=== PATIENT | female | born 1960 | race Caucasian/White ===

== ENCOUNTER 2021-07-25 08:45 | Outpatient (CLI) | payer OTHER, SELFPAY ==
--- NOTE | ~2021-07-25 | MR_ITS ---
EXAMINATION: MR shoulder RT wo con DATE: 07/25/2021 09:47 INDICATION: Right shoulder pain and stiffness TECHNIQUE: Magnetic resonance imaging (MRI) of the right shoulder was performed without intravenous c ontrast. Sequences included axial PD-weighted FS FSE, coronal oblique PD-weighted FS FSE, coronal obl ique T2-weighted FS FSE, sagittal PD-weighted FS FSE, and sagittal T1-weighted SE. COMPARISON: None. FINDINGS: Bones: There is subarticular collapse of a large portion of the humeral head probably sparing portions of th e posterior and superolateral aspects of the humeral head. There is fluid underlying the elevated art icular cortex and attached cartilage which is itself fractured into 3 separate fragments. There is ap pears to developed since the radiograph dated 12/17/2020 with appearance suggesting sequela of advance d osteonecrosis. Old healed fracture of the mid right clavicular diaphysis. No pathologic marrow repl acing process. Coracoacromial arch: The acromion undersurface is curved in morphology (type II). The coracoacromial ligament is normal. M oderate acromioclavicular osteoarthritis. Rotator cuff: Moderate supraspinatus and mild infraspinatus and subscapularis tendinopathy without discrete tear. T he teres minor tendon is normal. Normal rotator cuff muscle bulk and signal. Biceps tendon, glenoid labrum and glenohumeral cartilage: Long head of the biceps tendon is normal. Full/near full-thickness cartilage loss along the posterior two thirds of the glenoid labrum with subarticular edema-like signal change at the posterior inferio r glenoid. There is degenerative tearing superior to posterior inferior glenoid labrum with amorphous increased intrasubstance signal superiorly, more well-defined linear tear posteriorly and with dimin utive posterior inferior labrum. Fluid: Moderate-sized glenohumeral joint effusion. Small amount of fluid in the subacromial/subdeltoid bursa consistent with mild bursitis. IMPRESSION: 1. Likely advanced osteonecrosis at the right humeral head with subarticular collapse and likely loos e in situ fragmentation and elevation and fragmentation of a large portion of the articular cortex. 2. Severe secondary right glenohumeral osteoarthritis with extensive high-grade chondromalacia involv ing the posterior two thirds of the glenoid and tearing of the posterior half the glenoid labrum. 3. Moderate supraspinatus and mild subscapularis and infraspinatus tendinopathy without definitive te ar. 4. Moderate acromioclavicular osteoarthritis with mild underlying subacromial/subdeltoid bursitis. 5. Moderate sized right glenohumeral joint effusion. Reviewed, dictated and finalized at location A. IMPRESSION: 1. Likely advanced osteonecrosis at the right humeral head with subarticular co llapse and likely loose in situ fragmentation and elevation and fragmentation o f a large portion of the articular cortex. 2. Severe secondary right glenohumeral osteoarthritis with extensive high-grade chondromalacia involving the posterior two thirds of the glenoid and tearing o f the posterior half the glenoid labrum. 3. Moderate supraspinatus and mild subscapularis and infraspinatus tendinopathy without definitive tear. 4. Moderate acromioclavicular osteoarthritis with mild underlying subacromial/s ubdeltoid bursitis. 5. Moderate sized right glenohumeral joint effusion.
== END 2021-07-25 08:46 | disposition home or self-care (01) ==
LOC: ANHIMG 08:54
PROVIDERS: PCP Family Medicine; Visit Provider Orthopaedic Surgery
DX: M19.011 Primary osteoarthritis, right shoulder (principal); G89.29 Other chronic pain; M75.01 Adhesive capsulitis of right shoulder; M25.411 Effusion, right shoulder
CPT/HCPCS: 73221

== ENCOUNTER 2021-10-30 11:05 | Outpatient (CLI) | payer OTHER, SELFPAY ==
--- NOTE | ~2021-10-30 | XR_ITS ---
EXAMINATION: XR chest 2V DATE: 10/30/2021 11:26 INDICATION: Wheezing TECHNIQUE: PA and lateral views of the chest are obtained. COMPARISON: None available FINDINGS: The lungs are free of acute opacities. There is no pleural effusion or pneumothorax. The ca rdiomediastinal silhouette is normal. There is mild thoracic spondylosis. Changes of right shoulder a rthroplasty are noted. IMPRESSION: 1. No acute cardiopulmonary abnormality. Reviewed, dictated and finalized at location F.
== END 2021-10-30 11:06 | disposition home or self-care (01) ==
PROVIDERS: PCP Family Medicine; Visit Provider Family Medicine
DX: R06.2 Wheezing (principal)
CPT/HCPCS: 71046

== ENCOUNTER 2022-01-15 13:57 | Outpatient (CLI) | payer OTHER, SELFPAY ==
--- NOTE | ~2022-01-15 | DEXA_ITS ---
Bone Density Report Name: LYNDON BULL Age: 61 Sex: Female Ethnicity: White Date of : 1960 Indication: postmenopausal; screening for osteoporosis; height loss; prior fracture; Referring Provider: DENNY GALLEGOS Study: Bone densitometry was performed. Exam Date: January 15, 2022 Accession number: [id number] Bone Density: Region BMD T-score Z-score Classification AP Spine(L1-L4) 0.744 -2.8 -1.4 Osteoporosis Femoral Neck (Left) 0.608 -2.2 -0.9 Osteopenia Total Hip (Left) 0.794 -1.2 -0.3 Osteopenia Femoral Neck (Right) 0.561 -2.6 -1.3 Osteoporosis Total Hip (Right) 0.754 -1.5 -0.6 Osteopenia Total Hip Mean 0.774 -1.4 -0.5 Osteopenia World Health Organization criteria for BMD impression classify patients as: Normal (T-score at or above -1.0), Osteopenia (T-score between -1.0 and -2.5), or Osteoporosis (T-score at or below -2.5). 10-year Fracture Risk: FRAX not reported because: Some T-score for Spine Total or Hip Total or Femoral Neck at or below -2.5 Clinical Information Provided by Patient: Has had a low trauma fracture Smokes Patient maximum height was 64 Menopause Age: 50 Drinks caffeinated beverages Onset of menses at age 14 Number of children 3 Impression: The patient has established osteoporosis, based on the Total Spine T-score and the existence of a prior fracture. The patient has risk factors, including: smoking, previous fracture. Discussion: HIGH RISK OF FRACTURE. BONE DENSITY IS UNDESIRABLY LOW AT ONE OR MORE SKELETAL SITES, CONSISTENT WITH POSTMENOPAUSAL OSTEOPOROSIS. This patient's lowest T-score, in a patient who has previously fractured, meets the World Health Organization's (WHO) criteria for severe osteoporosis. In untreated patients, the risk of osteoporotic fracture increases approximately two-fold for each 1.0 SD decrease in T-score. Low bone density is not the only risk factor for fracture; also consider factors such as patient's age, frailty or poor health, risk of falling, risk of injury, previous osteoporotic fracture, family history of osteoporosis, cigarette smoking, low body weight, etc. Not everyone with low bone mineral density has osteoporosis; osteomalacia and other metabolic bone disorders should also be considered. Patients who have osteoporosis should be evaluated for specific diseases and conditions (secondary causes) that may cause or contribute to bone loss. The [place] [employer] Endocrinologists (AACE) and National Osteoporosis Foundation (NOF) recommend pharmacologic intervention for all postmenopausal women whose T-score is in this range. The patient should follow a healthful lifestyle (good nutrition with adequate calcium and vitamin D, and appropriate weight-bearing exercise). Follow-Up: Consider a repeat BMD and Vertebral
== END 2022-01-15 13:58 | disposition home or self-care (01) ==
PROVIDERS: PCP Family Medicine; Visit Provider Family Medicine
DX: Z78.0 Asymptomatic menopausal state (principal); M81.0 Age-related osteoporosis without current pathological fracture; M85.852 Other specified disorders of bone density and structure, left thigh; M85.851 Other specified disorders of bone density and structure, right thigh
CPT/HCPCS: 77080

== ENCOUNTER 2022-06-30 00:14 | Day surgery (SDC) | payer OTHER, SELFPAY ==
[2022-06-12 14:39] VITALS: BMI 23.8
--- NOTE | 2022-06-29 15:50 | WPDANESEPPF ---
Anes - Initial Pre Proc Eval Procedure: Operation Date: 06/30/22 09:30 Proposed Procedures p Colonoscopy - Spencer Cid MD Date/Time: 06/29/22 15:50 Surgeon: Spencer Cid MD Pre Op Diagnosis: positive cologuard Patient Data Age: 61 Gender: F Height: 1.6 m Weight: 61 kg Allergies Allergy/AdvReac Type Severity Reaction Status Date / Time cefaclor [From Ceclor] Allergy Rash Verified 06/30/22 08:12 codeine AdvReac Intermediate vomiting Verified 06/30/22 08:12 [From Tylenol-Codeine #3] Home Medications Medication Instructions Recorded Confirmed Type multivitamin 1 tablet PO DAILY 11/19/20 06/12/22 History albuterol sulfate 90 mcg/actuation 2 puff inhalation Q4H PRN 06/10/22 06/12/22 Rx aerosol inhaler (Ventolin HFA) shortness of breath or wheezing #6.7 grams diclofenac potassium 50 mg tablet 50 mg PO TID PRN pain #30 tabs 06/10/22 06/12/22 Rx ibandronate 150 mg tablet (Boniva) 150 mg PO MONTHLY #3 tabs 06/10/22 06/12/22 Rx Lactobacills gasseri-Bifidobac 1 cap PO DAILY 06/12/22 06/12/22 History bifidum,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 Cardroom Attendant labeled it a PE, but personal physician thought probably an DE. Mother Pancreatic cancer Social History Social History Smoking packs per day: 0.5 Smoking cigarettes per day: 10.0 Years smoked: 44 Smoking pack-years: 22.00 Smoking status: Current every day smoker Tobacco type: cigarettes Alcohol intake: current Substance use: never Substance use type: does not use Lack of Transportation: No Lack of Food: Never True Current Housing: I Have Housing Concerned About Future Housing: No Difficulty Paying Gas/Electric Bills: No Difficulty Paying for Meds: No Currently Unemployed: No Difficulty w/ Childcare or Family Care: No Living arrangements: with family Occupation/Education: occupation 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 Gender identity (if verbalized by the patient): Female Sexual Orientation (if Verbalized by the Patient): Straight or Heterosexual Spiritual care concerns: No Agree to blood products: Yes Anes - Eval Final PreProcedure Day of Procedure 06/29/22 15:50 Patient weight: normal Heart: regular rate and rhythm Lungs: clear to auscultation and normal air movement Airway: Mallampati scale class II Neurological: alert and oriented Last oral intake: >/= 8 hours ASA classification: II Emergent: no Anesthetic plan: proceed Anesthesia type and monitoring: general GIVS and standard monitoring Results Review: All pre-operative results and documents have been reviewed as part of the pre-operative evaluation. Informed Consent: The patient's anesthetic plan and its attendant risks and benefits were discussed with the patient/family/POA. Questions were solicited and answers provided to the satisfaction of the patient/family/POA.
[2022-06-30 08:14] VITALS: BP 103/50; PULSE 79; RESP 16; TEMP 36.2; O2SAT 100
[2022-06-30] MEDS: LACTATED RINGERS 1,000 ML 150 ML IV CONT (08:24)
--- NOTE | 2022-06-30 09:03 | PM.HPGS ---
History of Present Illness History of Present Illness Consent: Risks, benefits, and alternatives have been discussed and questions answered. Patient agrees to proceed with procedure. Chief complaint: positive cologuard Narrative: Viola Chinchilla is a 61 year old female here with + cologuard, had colonoscopy ~ 12 years ago Review of Systems Constitutional: Constitutional: Denies headache(s) and Denies weakness Eyes: Eyes: Denies blurry vision ENT: Reports Normal hearing present, Denies headache(s) and Denies neck pain Cardiovascular: Cardiovascular: Denies chest pain and Denies dyspnea Respiratory: Respiratory: Denies dyspnea Gastrointestinal: Gastrointestinal: Reports no additional gastrointestinal complaints Genitourinary: Genitourinary: Denies dysuria Musculoskeletal: Musculoskeletal: Denies neck pain Integumentary/Breasts: Skin/Breast: Denies dry skin Neurologic: Reports Normal hearing present, Denies headache(s) and Denies weakness Psychiatric: Psychiatric: Denies anxiety Endocrine: Endocrine: Denies change in body appearance Hematologic/Lymphatic: Hematologic/Lymphatic: Denies easy bleeding Allergic/Immunologic: Allergic/Immunologic: Denies urticaria PMFSH Past Medical History Medical History (Updated 06/30/22 @ 09:04 by Spencer Cid MD) Adhesive capsulitis of right shoulder Arthropathy of right 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 Residential Counselor labeled it a PE, but personal physician thought probably an VT. Mother Pancreatic cancer Social History Social History Smoking packs per day: 0.5 Smoking cigarettes per day: 10.0 Years smoked: 44 Smoking pack-years: 22.00 Smoking status: Current every day smoker Tobacco type: cigarettes Alcohol intake: current Substance use: never Substance use type: does not use Lack of Transportation: No Lack of Food: Never True Current Housing: I Have Housing Concerned About Future Housing: No Difficulty Paying Gas/Electric Bills: No Difficulty Paying for Meds: No Currently Unemployed: No Difficulty w/ Childcare or Family Care: No Living arrangements: with family Occupation/Education: occupation 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 Gender identity (if verbalized by the patient): Female Sexual Orientation (if Verbalized by the Patient): Straight or Heterosexual Spiritual care concerns: No Agree to blood products: Yes Meds Home Medications and Allergies Home Medications Medication Instructions Recorded Confirmed Type multivitamin 1 tablet PO DAILY 11/19/20 06/12/22 History albuterol sulfate 90 mcg/actuation 2 puff inhalation Q4H PRN 06/10/22 06/12/22 Rx aerosol inhaler (Ventolin HFA) shortness of breath or wheezing #6.7 grams diclofenac potassium 50 mg tablet 50 mg PO TID PRN pain #30 tabs 06/10/22 06/12/22 Rx ibandronate 150 mg tablet (Boniva) 150 mg PO MONTHLY #3 tabs 06/10/22 06/12/22 Rx Lactobacills gasseri-Bifidobac 1 cap PO DAILY 06/12/22 06/12/22 History bifidum,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
[2022-06-30 09:33] VITALS: BP 99/56; PULSE 63; RESP 14; O2SAT 94
[2022-06-30 09:43] VITALS: BP 102/64; PULSE 62; RESP 13; O2SAT 94
[2022-06-30 09:53] VITALS: BP 126/64; PULSE 66; RESP 17; O2SAT 94
== END 2022-06-30 09:55 | disposition home or self-care (01) ==
PROVIDERS: PCP Family Medicine; Visit Provider Internal Medicine Gastroenterology
PROC: 0DJD8ZZ Inspection of Lower Intestinal Tract, Via Natural or Artificial Opening Endoscopic (ICD-10-PCS; CPT 45378; principal; 2022-06-30 09:30)
DX: R19.5 Other fecal abnormalities (principal); D12.2 Benign neoplasm of ascending colon; D12.3 Benign neoplasm of transverse colon; K64.8 Other hemorrhoids; Z79.51 Long term (current) use of inhaled steroids; F17.210 Nicotine dependence, cigarettes, uncomplicated
CPT/HCPCS: 45385; 88305; J2704; J7120

== ENCOUNTER 2023-01-05 09:35 | Outpatient (CLI) | payer OTHER, SELFPAY ==
--- NOTE | ~2023-01-05 | XR_ITS ---
Right Hand Technique: PA, oblique, and lateral views were obtained. Clinical History: Fifth digit injury Findings: There is a transverse, minimally displaced fracture through the proximal shaft of the fifth proximal phalanx. There is also probable separate, oblique, intra-articular fracture at the base of the fifth proximal phalanx, mildly displaced. There is a transverse, possible mildly common fracture the base of the fourth proximal phalanx with probable focal intra-articular extension and minimal dis placement. Soft tissues are unremarkable. Impression: Transverse minimally displaced fracture the proximal shaft of the fifth proximal phalanx. Probable separate oblique, intra-articular, mildly displaced fracture at the base of the fifth proxim al phalanx. Transverse, suspected mildly comminuted, intra-articular fracture at the base of the fourth proximal phalanx. Reviewed, dictated and finalized at [facility]. Impression: Transverse minimally displaced fracture the proximal shaft of the fifth proxima l phalanx. Probable separate oblique, intra-articular, mildly displaced fracture at the ba se of the fifth proximal phalanx. Transverse, suspected mildly comminuted, intra-articular fracture at the base o f the fourth proximal phalanx.
== END 2023-01-05 09:36 | disposition home or self-care (01) ==
PROVIDERS: PCP Family Medicine; Visit Provider Plastic Surgery
DX: S62.616A Displaced fracture of proximal phalanx of right little finger, initial encounter for closed fracture (principal); X58.XXXA Exposure to other specified factors, initial encounter
CPT/HCPCS: 73130

== ENCOUNTER 2023-01-26 09:32 | Outpatient (CLI) | payer OTHER, SELFPAY ==
--- NOTE | ~2023-01-26 | XR_ITS ---
Right Hand Technique: PA, oblique, and lateral views were obtained. Clinical History: Fracture COMPARISON: 01/05/2023 Findings: Oblique/transverse fractures of the proximal portion of the fifth proximal phalanx is simil ar in alignment prior exam. There is minimal if any callus formation in the interval since the prior exam. Probable transverse, essentially nondisplaced fracture the base of the fourth proximal phalanx, also unchanged. Possible transverse nondisplaced fracture at the proximal fifth metacarpal shaft. Phyllis int spaces are preserved. Soft tissues are unremarkable. Impression: Oblique/transverse fractures the proximal portion of the fifth proximal phalanx, essentially unchange d from prior exam. Probable nondisplaced transverse fracture the base of the fourth proximal phalanx, essentially unchan ged. Possible transverse nondisplaced fracture of the proximal fifth metacarpal shaft. Reviewed, dictated and finalized at [facility]. Impression: Oblique/transverse fractures the proximal portion of the fifth proximal phalanx , essentially unchanged from prior exam. Probable nondisplaced transverse fracture the base of the fourth proximal phala nx, essentially unchanged. Possible transverse nondisplaced fracture of the proximal fifth metacarpal shirley moss
== END 2023-01-26 09:33 | disposition home or self-care (01) ==
PROVIDERS: PCP Family Medicine; Visit Provider Plastic Surgery
DX: S62.616D Displaced fracture of proximal phalanx of right little finger, subsequent encounter for fracture with routine healing (principal); X58.XXXD Exposure to other specified factors, subsequent encounter
CPT/HCPCS: 73130